=== PATIENT | female | born 1990 | race Caucasian/White ===

== ENCOUNTER 2021-03-02 12:56 | Outpatient (REF) | payer OTHER, SELFPAY ==
[2021-03-02 15:14] LABS: COVID-19 Test Negative (Negative)
== END 2021-03-02 12:57 | disposition home or self-care (01) ==
LOC: HO.LAB 12:56
PROVIDERS: PCP Internal Medicine; Visit Provider Internal Medicine
DX: Z20.822 Contact with and (suspected) exposure to COVID-19 (principal)
CPT/HCPCS: 36415; 87635; C9803

== ENCOUNTER 2021-09-26 09:23 | Outpatient (REF) | payer OTHER, SELFPAY ==
[2021-09-26 10:19] LABS: COVID-19 Test Negative (Negative); IDNOW Serial# 08D9AD1C
== END 2021-09-26 09:24 | disposition home or self-care (01) ==
LOC: HO.LAB 09:23
PROVIDERS: Absent Provider Nurse Practitioner Family; PCP Internal Medicine; Visit Provider Internal Medicine
DX: Z20.822 Contact with and (suspected) exposure to COVID-19 (principal)
CPT/HCPCS: 87635; C9803